=== PATIENT | female | born 1995 | race Caucasian/White ===

== ENCOUNTER → 2022-10-10 | Outpatient (REF) | payer OTHER | LOC: M PLALAB 16:06 | PROVIDERS: ATTEND Advanced Practice Midwife | DX: Z53.20 Procedure and treatment not carried out because of patient's decision for unspecified reasons (principal) ==

== ENCOUNTER → 2022-10-10 | Outpatient (CLI) | payer OTHER ==
[2022-10-10 17:37] LABS: HEMATOCRIT 46.9 % (36.0-47.0); HEMOGLOBIN 15.5 g/dl (12.0-15.5); MEAN CORPUSCULAR HEMOGLOBIN 30.6 pg (27.0-33.0); MEAN CORPUSCULAR VOLUME 92.5 fl (80.0-96.0); PLATELET COUNT, AUTOMATED 377 10^3/uL (150-450); RED BLOOD COUNT 5.07 10^6/uL (4.00-5.40); WHITE BLOOD COUNT 12.8 10^3/uL (4.0-10.0)
[2022-10-10 19:00] LABS: HIV 1&2 SCREEN CENTAUR NEGATIVE (NEGATIVE)
[2022-10-10 19:08] LABS: HEPATITIS C VIRUS ABY INDEX 0.1 INDEX (<0.8)
[2022-10-10 19:38] LABS: GC DNA AMPLIFICATION NEGATIVE (NEGATIVE)
== END ==
LOC: M PLALAB 16:17
PROVIDERS: ATTEND Advanced Practice Midwife
DX: O30.049 Twin pregnancy, dichorionic/diamniotic, unspecified trimester (principal); Z3A.00 Weeks of gestation of pregnancy not specified

== ENCOUNTER → 2022-11-14 | Outpatient (REF) | payer OTHER | LOC: M PLALAB 15:30 | PROVIDERS: ATTEND Advanced Practice Midwife | DX: O30.049 Twin pregnancy, dichorionic/diamniotic, unspecified trimester (principal); Z3A.00 Weeks of gestation of pregnancy not specified ==

== ENCOUNTER → 2022-12-07 | Outpatient (CLI) | payer OTHER | LOC: M WHC 11:02 | PROVIDERS: ATTEND Advanced Practice Midwife | DX: O30.049 Twin pregnancy, dichorionic/diamniotic, unspecified trimester (principal); Z3A.20 20 weeks gestation of pregnancy ==

== ENCOUNTER → 2023-01-09 | Outpatient (CLI) | payer OTHER ==
[2023-01-09 13:48] LABS: HEMATOCRIT 40.6 % (36.0-47.0); HEMOGLOBIN 13.6 g/dl (12.0-15.5); MEAN CORPUSCULAR HEMOGLOBIN 31.9 pg (27.0-33.0); MEAN CORPUSCULAR HGB CONC 33.5 g/dl (32.0-36.5); MEAN CORPUSCULAR VOLUME 95.3 fl (80.0-96.0); PLATELET COUNT, AUTOMATED 238 10^3/uL (150-450); RED BLOOD COUNT 4.26 10^6/uL (4.00-5.40); WHITE BLOOD COUNT 10.2 10^3/uL (4.0-10.0)
[2023-01-09 15:22] LABS: GC DNA AMPLIFICATION NEGATIVE (NEGATIVE)
== END ==
LOC: M PLALAB 09:04
PROVIDERS: ATTEND Obstetrics & Gynecology
DX: O30.042 Twin pregnancy, dichorionic/diamniotic, second trimester (principal)

== ENCOUNTER → 2023-02-13 | Outpatient (CLI) | payer OTHER | LOC: M WHC 07:28 | PROVIDERS: ATTEND Obstetrics & Gynecology | DX: O30.042 Twin pregnancy, dichorionic/diamniotic, second trimester (principal); Z3A.29 29 weeks gestation of pregnancy ==

== ENCOUNTER 2023-02-27 14:50 | Outpatient (CLI) | payer OTHER ==
[~2023-02-27] VITALS: Ht 167.6 cm; Wt 87.4 kg
[2023-02-27] MEDS ORDERED: PYRI100L PO (15:06)
[2023-02-27] MEDS ORDERED: UNIS25TA3 PO (15:06)
[2023-02-27] MEDS ORDERED: PREN1CHW6 PO (15:06)
[2023-02-27 15:08] VITALS: BP 134/82
[2023-02-27] MEDS ORDERED: HOME MED LIST COMPLETE! XX SCH (15:10)
[2023-02-27 15:42] VITALS: BP 141/89
[2023-02-27 15:42] LABS: MEAN CORPUSCULAR HEMOGLOBIN 31.4 pg (27.0-33.0); MEAN CORPUSCULAR HGB CONC 34.1 g/dl (32.0-36.5); MEAN CORPUSCULAR VOLUME 92.2 fl (80.0-96.0); PLATELET COUNT, AUTOMATED 232 10^3/uL (150-450); RED BLOOD COUNT 4.77 10^6/uL (4.00-5.40); WHITE BLOOD COUNT 9.4 10^3/uL (4.0-10.0)
[2023-02-27 15:53] LABS: CREATININE,RANDOM URINE 83.2 MG/DL
[2023-02-27 16:07] LABS: URIC ACID 5.4 MG/DL (3.1-7.8)
[2023-02-27 16:09] LABS: LDH LACTATE DEHYDROGENASE 171 U/L (120-246)
[2023-02-27 16:10] LABS: ALT/SGPT 18 U/L (7.0-40); AST/SGOT 21 U/L (<34); BILIRUBIN,TOTAL 0.4 MG/DL (0.3-1.2); CREATININE FOR GFR 0.53 MG/DL (0.55-1.30); GLOMERULAR FILTRATION RATE > 60.0 (>60)
[2023-02-27 16:12] VITALS: BP 139/83
[2023-02-27] MEDS: BETAMETHASONE SOLUSPAN 6MG/ML 5ML VIAL IM SCH (16:34)
== END 2023-02-27 16:19 | disposition home or self-care (01) ==
LOC: M LDO 14:50
PROVIDERS: ATTEND Advanced Practice Midwife
DX: O13.3 Gestational [pregnancy-induced] hypertension without significant proteinuria, third trimester (principal); O34.219 Maternal care for unspecified type scar from previous cesarean delivery; O30.043 Twin pregnancy, dichorionic/diamniotic, third trimester; Z98.870 Personal history of in utero procedure during pregnancy; Z3A.31 31 weeks gestation of pregnancy
CPT/HCPCS: 36415; 59025; 82247; 82565; 82570; 83615; 84156; 84450; 84460; 84550; 85027; 96372; G0463; J0702

== ENCOUNTER 2023-02-28 16:14 | Outpatient (CLI) | payer OTHER ==
[~2023-02-28] VITALS: Ht 167.6 cm; Wt 88.0 kg
[~2023-02-28 16:14] MED LIST: PREN1CHW6 PO; PYRI100L PO; UNIS25TA3 PO
[2023-02-28 16:40] VITALS: BP 127/69
[2023-02-28] MEDS ORDERED: BETAMETHASONE SOLUSPAN 6MG/ML 5ML VIAL IM ONE ×2 (17:00)
== END 2023-02-28 17:25 | disposition home or self-care (01) ==
LOC: M LDO 16:14
PROVIDERS: ATTEND Specialist
DX: O13.3 Gestational [pregnancy-induced] hypertension without significant proteinuria, third trimester (principal); O30.043 Twin pregnancy, dichorionic/diamniotic, third trimester; Z98.870 Personal history of in utero procedure during pregnancy; Z3A.31 31 weeks gestation of pregnancy
CPT/HCPCS: 59025; 96372; G0463; J0702

== ENCOUNTER → 2023-03-21 | Outpatient (CLI) | payer OTHER ==
[~2023-03-21] MED LIST changes: +ACET-683 PO; +ACET500P3 PO; +IBUP80TA PO; +TUMS500C PO
== END ==
LOC: M RAD 09:04
PROVIDERS: ATTEND Specialist
DX: O30.043 Twin pregnancy, dichorionic/diamniotic, third trimester (principal); Z3A.33 33 weeks gestation of pregnancy

== ENCOUNTER 2023-03-22 11:18 | Inpatient (IN) | payer OTHER ==
[2023-03-22] VITALS (19 sets, daily range): BP systolic 115–195; BP diastolic 67–110
[~2023-03-22] VITALS: Ht 167.6 cm; Wt 85.7 kg
[~2023-03-22 11:18] MED LIST changes: -ACET-683 PO; -ACET500P3 PO; -IBUP80TA PO; -TUMS500C PO
[2023-03-22 12:00] LABS: MEAN CORPUSCULAR HEMOGLOBIN 31.3 pg (27.0-33.0); PLATELET COUNT, AUTOMATED 253 10^3/uL (150-450); RED BLOOD COUNT 5.11 10^6/uL (4.00-5.40); WHITE BLOOD COUNT 10.4 10^3/uL (4.0-10.0)
[2023-03-22] MEDS ORDERED: ACET500P3 PO (12:14)
[2023-03-22] MEDS ORDERED: TUMS500C PO (12:16)
[2023-03-22 12:24] LABS: TOTAL PROTEIN,RANDOM URINE 14.8 MG/DL (0.0-14.0)
[2023-03-22 12:26] LABS: URIC ACID 6.1 MG/DL (3.1-7.8)
[2023-03-22 12:28] LABS: LDH LACTATE DEHYDROGENASE 174 U/L (120-246)
[2023-03-22 12:29] LABS: CREATININE,RANDOM URINE 92.7 MG/DL
[2023-03-22 12:29] LABS: ALT/SGPT 18 U/L (7.0-40); AST/SGOT 19 U/L (<34); BILIRUBIN,TOTAL 0.5 MG/DL (0.3-1.2); CREATININE FOR GFR 0.66 MG/DL (0.55-1.30); GLOMERULAR FILTRATION RATE > 60.0 (>60)
[2023-03-22] MEDS ORDERED: NIFEdipine 10 MG CAP PO STA (13:00)
[2023-03-22] MEDS ORDERED: LACTATED RINGER'S 1000 ML IV STA (13:58)
[2023-03-22] MEDS ORDERED: CARBOPROST TROMETHAMINE 250 MCG/ML AMP IM PRN (14:00)
[2023-03-22] MEDS ORDERED: BICITRA 30ML SOLN UDC PO ONE (14:00)
[2023-03-22] MEDS ORDERED: ceFAZolin SOD 2 GM in IV 1 EA IV ONE (14:00)
[2023-03-22] MEDS ORDERED: TRANEXAMIC ACID INJection 1,000 MG in NS 100 ML IV PRN (14:00)
[2023-03-22] MEDS ORDERED: HOME MED LIST COMPLETE! XX SCH (14:20)
[2023-03-22] MEDS ORDERED: KETOROLAC 60MG 2ML VIAL As Ordered ONE (16:24)
[2023-03-22] MEDS ORDERED: OXYTOCIN INJ 10UNITS/ML 1ML VIAL As Ordered ONE ×2 (16:24→17:28)
[2023-03-22] MEDS ORDERED: MORPHINE PRES-FREE INJ 10 MG/10 ML VIAL As Ordered ONE (16:24)
[2023-03-22] MEDS ORDERED: MOM 30ML SUSPENSION UDC PO PRN (16:45)
[2023-03-22] MEDS ORDERED: ONDANSETRON 4MG 2ML VIAL IV PRN ×2 (16:45→18:20)
[2023-03-22] MEDS ORDERED: OXYTOCIN DRIP 30 UNITS in IV 1 EA IV SCH (16:45)
[2023-03-22] MEDS ORDERED: RHOGAM 300MCG (1500IU) INJ IM SCH (16:45)
[2023-03-22] MEDS ORDERED: PERCOCET 5MG/325MG TAB PO PRN ×2 (16:45)
[2023-03-22] MEDS ORDERED: PHENYLephrine 500MCG 5ML (100MCG/ML) SYRINGE As Ordered ONE (16:53)
[2023-03-22] MEDS ORDERED: NALOXONE INJ 0.4MG/1ML VIAL IV PRN ×2 (18:20)
[2023-03-22] MEDS ORDERED: fentaNYL 100 MCG/2 ML INJECTION IV PRN (18:20)
[2023-03-22] MEDS ORDERED: **NOTE PATIENT COMMENT** MISC XX SCH (18:20)
[2023-03-22] MEDS ORDERED: MEPERIDINE 25 MG/ML 1ML VIAL IV PRN (18:20)
[2023-03-22] MEDS ORDERED: METOCLOPRAMIDE INJ 10MG/2ML VIAL IV PRN (18:20)
[2023-03-22] MEDS ORDERED: HYDROMORPHONE HCL 0.5 MG/ 0.5 ML SYRINGE IV PRN (18:20)
[2023-03-22] MEDS ORDERED: diphenhydrAMINE 50MG/ML VIAL IV PRN (18:20)
[2023-03-22] MEDS ORDERED: oxyCODONE 5MG TAB PO PRN (18:20)
[2023-03-22] MEDS ORDERED: OXYTOCIN 30UNITS IN 0.9% NaCl 500ML IV BAG As Ordered ONE (18:22)
[2023-03-22] MEDS: SLF 3 ML SYR IV SCH (18:40)
[2023-03-22] MEDS: LR 1,000 ML IV SCH ×3 (20:26→22:00)
[2023-03-22] MEDS: DOCUSATE SODIUM 100MG CAPSULE PO SCH (20:36)
[2023-03-22] MEDS: KETOROLAC 30 MG/ML 1ML VIAL IV SCH (22:26)
[2023-03-23] MEDS: LR 1,000 ML IV SCH (01:11)
[2023-03-23 02:00] VITALS: BP 120/75
[2023-03-23] MEDS: SLF 3 ML SYR IV SCH ×2 (02:20→10:34)
[2023-03-23] MEDS: KETOROLAC 30 MG/ML 1ML VIAL IV SCH ×2 (04:32→10:35)
[2023-03-23 06:00] VITALS: BP 154/76
[2023-03-23 07:42] LABS: HEMATOCRIT 39.8 % (36.0-47.0); MEAN CORPUSCULAR HEMOGLOBIN 31.1 pg (27.0-33.0); MEAN CORPUSCULAR HGB CONC 33.7 g/dl (32.0-36.5); MEAN CORPUSCULAR VOLUME 92.3 fl (80.0-96.0); PLATELET COUNT, AUTOMATED 194 10^3/uL (150-450); RED BLOOD COUNT 4.31 10^6/uL (4.00-5.40); WHITE BLOOD COUNT 14.4 10^3/uL (4.0-10.0)
[2023-03-23 07:43] LABS: HEMOGLOBIN 13.4 g/dl (12.0-15.5)
[2023-03-23] MEDS: PRENATAL VITAMINS CHEWABLE TABLET PO SCH (09:42)
[2023-03-23] MEDS: DOCUSATE SODIUM 100MG CAPSULE PO SCH ×2 (09:42→20:48)
[2023-03-23] MEDS: SIMETHICONE 80MG CHEW TAB PO PRN ×2 (09:50→17:59)
[2023-03-23 10:00] VITALS: BP 144/85
[2023-03-23] MEDS: IBUPROFEN 800 MG TAB PO SCH (17:59)
[2023-03-23 18:00] VITALS: BP 125/68
[2023-03-23 21:01] VITALS: BP 140/86
[2023-03-23 22:00] VITALS: BP 140/86
[2023-03-24 02:00] VITALS: BP 141/89
[2023-03-24] MEDS: IBUPROFEN 800 MG TAB PO SCH ×3 (02:28→18:45)
[2023-03-24 06:00] VITALS: BP 135/83
[2023-03-24] MEDS: PRENATAL VITAMINS CHEWABLE TABLET PO SCH (08:47)
[2023-03-24] MEDS: DOCUSATE SODIUM 100MG CAPSULE PO SCH ×2 (08:48→19:20)
[2023-03-24] MEDS ORDERED: MEASLES,MUMPS,RUBELLA VACCINE INJ (MMR-II) SC.IMMUN ONE (09:00)
[2023-03-24 10:00] VITALS: BP 129/82
[2023-03-24 14:00] VITALS: BP 129/77
[2023-03-24 18:01] VITALS: BP 136/84
[2023-03-25] MEDS: IBUPROFEN 800 MG TAB PO SCH ×2 (02:33→11:17)
[2023-03-25 06:03] VITALS: BP 145/93
[2023-03-25] MEDS: PRENATAL VITAMINS CHEWABLE TABLET PO SCH (09:09)
[2023-03-25] MEDS: SIMETHICONE 80MG CHEW TAB PO PRN (09:09)
[2023-03-25] MEDS: DOCUSATE SODIUM 100MG CAPSULE PO SCH (09:09)
[2023-03-25 10:00] VITALS: BP 130/78
[2023-03-25] MEDS ORDERED: IBUP80TA PO (12:46)
[2023-03-25] MEDS ORDERED: ACET-683 PO (12:46)
== END 2023-03-25 13:10 | disposition home or self-care (01) | DRG 773 ==
LOC: M LDO 11:18 → M LDI 13:37 → M OBS 19:14
PROVIDERS: ADMIT Advanced Practice Midwife; ATTEND Advanced Practice Midwife
PROC: 10D00Z1 Extraction of Products of Conception, Low, Open Approach (ICD-10-PCS; principal; 2023-03-22 16:00)
DX: O14.14 Severe pre-eclampsia complicating childbirth (principal); Z37.2 Twins, both liveborn; Z3A.35 35 weeks gestation of pregnancy; O30.043 Twin pregnancy, dichorionic/diamniotic, third trimester; O34.211 Maternal care for low transverse scar from previous cesarean delivery